=== PATIENT | male | born 1960 | race Caucasian/White ===

== ENCOUNTER 2025-02-13 20:29 | Emergency (ER) | payer OTHER, SELFPAY ==
--- NOTE | ~2025-02-13 | XR_ITS ---
CLINICAL HISTORY: pain, injury 4 view left wrist Comparison: None provided Findings: Minimal to mildly displaced fracture present at the distal left radius with extension of the fracture line to the articular surface. Vascular calcifications are present. IMPRESSION: 1. Minimal to mildly displaced fracture present at the distal left radius as described above. This document has been electronically signed by: Marc Schroeder MD on 02/13/2025 21:49:56
--- NOTE | ~2025-02-13 | XR_ITS ---
CLINICAL HISTORY: pain, injury 3 view left hand Comparison: None provided Findings: No acute fractures or dislocations are identified at the left hand. Fracture present at the distal left radius. Vascular calcifications are present. IMPRESSION: 1. No acute fracture or dislocation injury identified at the left hand. 2. Fracture present at the distal left radius. This document has been electronically signed by: Marc Schroeder MD on 02/13/2025 21:48:50
[2025-02-13 20:38] VITALS: BP 130/74; PULSE 98; RESP 20; TEMP 37.1; O2SAT 96; BMI 27.8
--- NOTE | 2025-02-13 20:43 | ED_ITS ---
HPI - General Adult General Chief complaint: Extremity Injury, Upper Stated complaint: left shoulder and wrist injury Time Seen by Provider: 02/13/25 20:44 Source: patient and family (patient's ) Mode of arrival: ambulatory Limitations: no limitations History of Present Illness ED Provider: Rose Marie Reddy PA-C HPI narrative: Patient is a 64 year old male with no reported medical history presenting to the emergency department today with left wrist and shoulder pain after a fall. Patient states that he fell approximately 4 feet while at work and injured his left wrist and shoulder. Patient states that he was seen at an urgent care and placed in a sling / splint with pending images. Patient states that he was called and told that he has a broken left wrist and to go to the ER to be evaluated. Patient denies any head strike or loss of consciousness with the incident. Patient denies any anti-coagulation medication use. Patient denies any other complaints at this time. Onset (ago): hour(s) Location: left and upper extremity Exacerbating factors: movement Associated symptoms: denies other symptoms Related Data Allergies Allergy/AdvReac Type Severity Reaction Status Date / Time Penicillins Allergy Hives Verified 02/13/25 20:44 Review of Systems Constitutional: Constitutional: Reports as per HPI Eyes: Eyes: Reports as per HPI ENT: Reports as per HPI Cardiovascular: Cardiovascular: Reports as per HPI Respiratory: Respiratory: Reports as per HPI Gastrointestinal: Gastrointestinal: Reports as per HPI Genitourinary: Genitourinary: Reports as per HPI Musculoskeletal: Musculoskeletal: Reports as per HPI Integumentary/Breasts: Skin/Breast: Reports as per HPI Neurologic: Reports as per HPI Psychiatric: Psychiatric: Reports as per HPI Endocrine: Endocrine: Reports as per HPI Hematologic/Lymphatic: Hematologic/Lymphatic: Reports as per HPI Allergic/Immunologic: Allergic/Immunologic: Reports as per HPI [facility] Past Medical History Attestation statement: The following information was validated with the patient. (all information validated with the patient's ) Source: old records reviewed, obtained from family (patient's provided additional history and confirmed the history provided by the patient. ) and nursing notes reviewed Social History Social History Advance Directives: No Advance Directives Information Provided: No Do you have a plan to hurt others: No Plan Physical Exam ED Vital Signs: Vital Signs - 24 hr 02/13/25 20:38 02/13/25 21:47 Temperature 98.8 F 98.8 F Pulse Rate 98 98 Respiratory Rate 20 20 Blood Pressure 130/74 130/74 Pulse Oximetry 96 96 Oxygen Delivery Method Room Air Room Air BMI result Body Mass Index 27.8 Const General: cooperative, alert and awake Orientation/consciousness: patient oriented x3 HENMT Head: Yes normal to inspection and Yes atraumatic Ears: hearing grossly normal bilaterally and external ears normal General nose exam: Normal external nose present, no nasal discharge noted and no epistaxis Face and sinus: Yes normal facial exam, No abrasion and No laceration Mouth: Normal oral and palatal mucosa present, no drooling and no muffled voice Eyes General: appearance normal, both eyes and all related structures Periorbital: periorbital findings normal Eyelids: Yes eyelids normal Conjunctivae: conjunctivae normal Pupils: Equal, round and reactive pupils present EOM: EOMs intact bilaterally Resp Effort & Inspection: normal respiratory effort and able to speak in complete sentences Neuro General: patient oriented x3, moves all extremities and CN's II-XI intact bilaterally Cranial nerves: Yes Equal, round and reactive pupils present Cognition (Neuro): normal cognition Extrem Other: ROM present to the bilateral upper extremities Painful ROM of the left wrist and shoulder Painful left wrist pain with palpation along the dorsal and volar aspects General: Yes capillary refill normal Psych Appearance: grossly normal Mental Status: mental status grossly normal Attitude: cooperative Procedures Orthopedic Splinting/Casting Left wrist fracture: Side: left Upper Extremity Injury Location: wrist Upper Extremity Immobilizer: sugar tong splint Medical Decision Making Medical Decision Making MDM Narrative: Patient is a 64 year old male with no reported medical history presenting to the emergency department today with left wrist and shoulder pain after a fall. Patient's physical exam was as noted in the physical exam portion of this note. Patient's left wrist and hand x-ray showed a minimally to mildly displaced fracture of the distal left radius. I reviewed the reading from the [facility] Urgent care imaging of the left shoulder which was read as negative for any acute bony process. I explained my physical exam findings as well as all test results to the patient and the patient's . I answered all questions asked by the patient and the patient's . Patient's left wrist was placed in a sugar tong splint, without incident. Patient's PMS was intact prior to and after splint placement. Patient's left upper extremity was placed back into the sling he brought with, without incident . Patient's PMS was intact prior to and after sling placement. I stressed the importance of the patient taking his medication as directed (either prescribed or as the over the counter packaging recommends). I stressed the importance of the patient following up with his primary care provider, work connection since this was a work place event, and the orthopedic team. I stressed the importance of the patient returning to the emergency department immediately if his symptoms were to worsen or if he were to develop any dizziness, shortness of breath, difficulty breathing, chest pain, blurry vision, loss of vision, nausea, vomiting, abdominal pain, fever, chills, back pain, or any other complaints. Patient and the patient's verbalized agreement and understanding with this treatment plan and discharge. Differential Diagnosis Differential Diagnoses: The differential diagnosis associated with the presentation includes Left wrist fracture Left shoulder sprain / strain Fall Admission/Observation Consideration of admission/observation: Escalation of care including admission/observation considered Patient would have been admitted to the hospital had his work up had any findings where hospital admission was appropriate and his clinical presentation warranted hospital admission. Independent Interpretation I performed an independent interpretation of an: Plain X-Ray Interpretation: My interpretation is in agreement with the radiologist's impression of these imaging studies as written below. CLINICAL HISTORY: pain, injury 4 view left wrist Comparison: None provided Findings: Minimal to mildly displaced fracture present at the distal left radius with extension of the fracture line to the articular surface. Vascular calcifications are present. IMPRESSION: 1. Minimal to mildly displaced fracture present at the distal left radius as described above. This document has been electronically signed by: Marc Schroeder MD on 02/13/2025 21:49:56 Dictated By: Marc Schroeder MD Signed By: Electronically signed by Marc Schroeder MD 02/13/25 [id number] CLINICAL HISTORY: pain, injury 3 view left hand Comparison: None provided Findings: No acute fractures or dislocations are identified at the left hand. Fracture present at the distal left radius. Vascular calcifications are present. IMPRESSION: 1. No acute fracture or dislocation injury identified at the left hand. 2. Fracture present at the distal left radius. This document has been electronically signed by: Marc Schroeder MD on 02/13/2025 21:48:50 Dictated By: Marc Schroeder MD Signed By: Electronically signed by Marc Schroeder MD 02/13/25 [id number] Radiology Impression Discussion of test interpretation with radiology: I have reviewed the radiologist's reading. Independent Historian Clinical information obtained from an independent historian. History obtained from or confirmed by: Spouse (patient's provided additional history and confirmed the history provided by the patient. ) External Record Review External record reviewed: Outpatient record (reviewed [facility] Urgent care imaging from visit on 02/13/2025) Tests considered The following testing was considered but not selected: I considered obtaining a repeat left shoulder x-ray however, the patient's clinical presentation did not warrant this and I was able to review the read from the outpatient imaging performed. I considered obtaining a CT of the head and c-spine however, the patient's current clinical presentation, lack of anti- coagulation medicine use, and mechanism of injury did not warrant it at this time. Discharge Plan Discharge Clinical Impression: Fracture of wrist, Shoulder sprain Patient Disposition: Home, Self-Care Instructions: Wrist Fracture in Adults (ED), Shoulder Sprain (ED) Additional Instructions: Do NOT bear weight / use the splinted extremity. Do NOT stick anything down / into your splint. Do NOT get your splint wet. Do NOT remove your splint. If you have any change in sensation, movement, or color of your left fingers - you may loosen the outer GUILLERMO wraps. If you find yourself loosening the GUILLERMO wraps to the point of seeing the white splint material underneath - STOP and proceed to your closest Emergency Department, immediately. Follow up with your primary care provider and the orthopedic team. ONLY wear your sling with ambulation. Remove it when you are not ambulating. Every 1 hour for 10 minutes move your left shoulder to avoid freezing the joint. Given this was a work place injury - you should follow up with the work connection team. Return to the emergency department immediately if your symptoms worsen or if you develop any numbness, tingling, dizziness, shortness of breath, difficulty breathing, chest pain, blurry vision, loss of vision, nausea, vomiting, abdominal pain, fever, chills, back pain, or any other complaints. Please see the information below about our Patient Portal. If you are not yet enrolled in the [facility] Patient Portal, you will receive an enrollment email invitation following your visit to any [facility] setting. You may also self-enroll in the Patient Portal by visiting our website: [email or web address] The following information is required to access the Patient Portal: - Your [facility] Medical Record Number - Your personal home email address (must match what is in your electronic [facility] record, Registration staff can assist with this) - Name - Date of Capabilities of the Patient Portal: - Message some providers - View upcoming appointments - Access your health summary, medical history, and visit history - View current conditions and allergies - View procedure and lab results - View your medications, including guidelines, side effects, and precautions - Complete pre-appointment questionnaires requested by your provider - Ready summary reports of your office visits and procedures To access the Patient Portal Mobile Feng, follow these directions: - Search [employer] in the Feng Store or Chronic[employer] Store - Download the Feng - Search for [facility] - Enter your login/password Referrals: [facility] Orthopedic Surgeons [Provider Group] Referral Note: Call to establish and follow up with the orthopedic team for your left wrist fracture and left shoulder injury. [facility] [Provider Group] Referral Note: Given this was a work place injury, call to establish and follow up with work connection. Greta Clark MD [Primary Care Provider, Internal Medicine] Stand Alone Forms: Work/School Release Interventions: ED Discharge Assessment Last Done: 02/13/25 21:47 Discharge Date/Time: 02/13/25 21:48 Print Language: Hungarian
[2025-02-13 21:47] VITALS: BP 130/74; PULSE 98; RESP 20; TEMP 37.1; O2SAT 96
== END 2025-02-13 21:48 | disposition home or self-care (01) ==
PROVIDERS: Emergency Provider Student in an Organized Health Care Education/Training Program; PCP Pediatrics
DX: S52.502A Unspecified fracture of the lower end of left radius, initial encounter for closed fracture (principal); W17.89XA Other fall from one level to another, initial encounter; Y93.9 Activity, unspecified; Y92.9 Unspecified place or not applicable; Y99.0 Civilian activity done for income or pay; M25.512 Pain in left shoulder; M25.532 Pain in left wrist
CPT/HCPCS: 29105; 73110; 73130; 99282; 99283

== ENCOUNTER → 2025-02-13 20:43 | Outpatient (BNV) | payer OTHER, SELFPAY | PROVIDERS: Emergency Provider Student in an Organized Health Care Education/Training Program; PCP Pediatrics; Visit Provider Radiology Diagnostic Radiology | DX: S59.292A Other physeal fracture of lower end of radius, left arm, initial encounter for closed fracture (principal) | CPT/HCPCS: 73110; 73130 ==

== ENCOUNTER 2025-02-18 08:14 | Outpatient (AMB) | payer OTHER, SELFPAY ==
--- NOTE | 2025-02-18 08:21 | A.OFFVIS_ITS ---
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 States he felt immediate pain in his wrist, seen at [facility] and then [facility] radiology for Xray. States he was told he has a fracture in his wrist. He was splinted and was given a sling. Today patient states he has pain 7/10 on pain scale. He has swelling and bruising. Allergies Penicillins Allergy (Verified 02/18/25 08:49) Hives HPI HPI ER F/U- Lt wrist Fracture, WC: Details: Mateus is a 64 year old right hand dominant man who presents for a left distal radius fracture, S/P fall, DOI: 02/13/25 at work. He was seen in the ED and splinted. He complains of pain in his left wrist, worse with any movement. He also complains of swelling in his wrist. He denies any numbness or tingling. 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 He is [place] on vacation from [place]11-03[place]16. 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 Review of Systems Const All systems reviewed & are unremarkable except as noted in HPI and below Physical Exam Vital Signs: BMI result Body Mass Index 27.8 Const General: cooperative, healthy appearing and no acute distress Orientation/consciousness: patient oriented x3 HEENT Head: Yes normocephalic and Yes atraumatic Eyes EOM: EOMs intact bilaterally Resp Effort & Inspection: normal respiratory effort and able to speak in complete sentences Cardio Jugular venous distension: no JVD Skin General skin exam: turgor normal Rashes: no rashes Neuro General: patient oriented x3 Extrem Other: Evaluation of Left Upper Extremity: The patient is alert, oriented, and in no acute distress Neuro: Median, Ulnar, Radial nerves motor and sensory intact and sensation is normal to the tips of all digits Vascular: Cap refill brisk ROM: He can make a weak fist and extend all his digits Full pronation ~60 degrees supination Skin: No lacerations or abrasions or evidence of open fracture General: Resolving volar ecchymosis & swelling about the wrist No Erythema or evidence of infection. Most tender over the fracture site No elbow tenderness No pain with proximal forearm squeeze Radiographs: 3 views of the let wrist were taken and viewed by me today in clinic. They show a comminuted intra-articular distal radius fracture minimally displaced with no articular step-off on today's radiographs Psych Appearance: grossly normal Affect: normal affect Attitude: cooperative Assessment & Plan Assessment & Plan (1) Fracture of left distal radius: Code(s): S52.502A - Unspecified fracture of the lower end of left radius, initial encounter for closed fracture Category: Medical Plan Assessment & Plan: 1. Left distal radius fracture, comminuted intra-articular S/P fall, DOI: 02/13/25 This is a work-related injury I educated him about this condition I discussed operative and non-operative treatment options I recommend we manage this in a cast, and he is in agreement He was placed in a short arm cast, to be worn for the next 3 weeks. I discussed activity modifications, he is to lift nothing heavier than a cellphone for the next 6 weeks. 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 He was given a note for work to remain out of work for the next 4 weeks. 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 Anticipate 4 weeks light duty afterwards He will follow up next week, with X-rays, 3V L wrist, OOP. Evaluate for potential need for surgery if there is any change in alignment Scribed for Melia Sher MD by Mario Brennan, medical physics teacher, on 02/18/25 at 8:50 AM, EST. Orders: Orders XR wrist LT min 3V Today M25.532 - Pain in left wrist Coding Level of Care Code New Pt Level 3 (73577) Diagnoses Fracture of left distal radius S52.770Q
[2025-02-18 08:41] VITALS: BMI 27.8
== END 2025-02-18 09:44 | disposition home or self-care (01) ==
LOC: HO.HOS 08:15
PROVIDERS: PCP Pediatrics; Visit Provider Orthopaedic Surgery
DX: S52.502A Unspecified fracture of the lower end of left radius, initial encounter for closed fracture (principal)
CPT/HCPCS: 25600; 99203

== ENCOUNTER → 2025-02-18 08:16 | Outpatient (BNV) | payer OTHER, SELFPAY | PROVIDERS: Visit Provider Radiology Diagnostic Radiology | DX: S52.572A Other intraarticular fracture of lower end of left radius, initial encounter for closed fracture (principal) | CPT/HCPCS: 73110 ==

== ENCOUNTER 2025-02-18 10:29 | Outpatient (REF) | payer OTHER, BC, SELFPAY ==
--- NOTE | ~2025-02-18 | XR_ITS ---
EXAMINATION: XR WRIST 3 OR MORE VIEWS LEFT HISTORY: M25.532 - Pain in left wrist COMPARISON: Comparison is made with the prior examination dated 02/13/2025. FINDINGS: Three views of the left wrist are submitted. Osseous mineralization is normal. Again seen is a comminuted intra-articular fracture of the distal radius. The appearance is unchanged from the prior study. The joint spaces are preserved. There are vascular calcifications. XR/XR wrist LT min 3V IMPRESSION: Comminuted intra-articular fracture of the distal radius without change. Electronically signed by: Richy Barrow MD 02/18/2025 08:41 AM EST
== END 2025-02-18 10:30 | disposition home or self-care (01) ==
LOC: HO.HOSX 10:29
PROVIDERS: Visit Provider Orthopaedic Surgery
DX: S52.502A Unspecified fracture of the lower end of left radius, initial encounter for closed fracture (principal); V58.4XXA Person boarding or alighting a pick-up truck or van injured in noncollision transport accident, initial encounter; Y99.0 Civilian activity done for income or pay
CPT/HCPCS: 73110